=== PATIENT | male | born 1960 | race African-American/Black ===

== ENCOUNTER 2020-02-10 03:45 | Emergency (ER) | payer SELFPAY ==
[~2020-02-10] VITALS: Ht 180.3 cm; Wt 96.9 kg
[2020-02-10 03:54] VITALS: BP 160/90
[2020-02-10] MEDS ORDERED: IBUPROFEN 600 MG TABLET ONE (04:17)
[2020-02-10] MEDS ORDERED: IBUPROFEN 600 MG TABLET PO ONE (04:30)
--- NOTE | 2020-02-10 04:44 | NUR ---
RADIOLOGY DELAY @ 5130- PATIENT NOT CHANGED FOR EXAM
--- NOTE | 2020-02-10 05:03 | NUR ---
Patient in xray
--- NOTE | 2020-02-10 05:04 | NUR ---
Late entry: Patient presents to ER c/o chest and knee pain. Patient states he was moving refrigerators and one fell on him. Patient is in NAD. Respirations even and unlabored.
--- NOTE | 2020-02-10 06:02 | NUR ---
Discharge instructions given. All questions and concerns addressed. Patient ambulatory with a steady gait. Belongings with patient.
== END 2020-02-10 06:03 | disposition home or self-care (01) ==
LOC: ED 06:00
DX: G89.11 Acute pain due to trauma (principal); R07.89 Other chest pain; M25.561 Pain in right knee; X58.XXXA Exposure to other specified factors, initial encounter; Y93.89 Activity, other specified; Y92.89 Other specified places as the place of occurrence of the external cause; Y99.8 Other external cause status
CPT/HCPCS: 99284